=== PATIENT | female | born 1955 | race Caucasian/White ===

== ENCOUNTER 2016-12-06 17:41 | Inpatient (IN) | payer BC ==
--- NOTE | 2016-12-06 17:53 | ER Document Report ---
ED Medical Screen (RME) - General Stated Complaint: ABDOMINAL PAIN Mode of Arrival: Ambulatory Information source: Patient Notes: Patient complains of upper abdominal pain that wraps around entire upper abdomen for the past 5 days. No fever. No nausea or vomiting. Patient was sent from outpatient radiology office with concerns about likely cholecystitis. hx: Dyslipidemia, hypothyroid I have greeted and performed a rapid initial assessment of this patient. A comprehensive ED assessment and evaluation of the patient, analysis of test results and completion of the medical decision making process will be conducted by additional ED providers. TRAVEL OUTSIDE OF THE [place] IN LAST 30 DAYS: No - Related Data Allergies/Adverse Reactions: No Known Allergies Allergy (Unverified 08/13/16 02:31) Physical Exam - Vital signs Vitals: Temp Pulse Resp BP Pulse Ox 98.2 F 86 18 145/87 H 96 12/06/16 17:49 12/06/16 17:49 12/06/16 17:49 12/06/16 17:49 12/06/16 17:49 - Abdominal Tenderness: Tender - Upper abdomen tenderness Course - Vital Signs Vital signs: Temp Pulse Resp BP Pulse Ox 98.2 F 86 18 145/87 H 96 12/06/16 17:49 12/06/16 17:49 12/06/16 17:49 12/06/16 17:49 12/06/16 17:49
[2016-12-06 18:46] LABS: ABSOLUTE EOSINOPHILS # (AUTO) 0.1 10^3/uL (0.0-0.6); ABSOLUTE LYMPHOCYTES (AUTO) 1.2 10^3/uL (0.5-4.7); ABSOLUTE MONOCYTES (AUTO) 2.2 10^3/uL (0.1-1.4); ABSOLUTE NEUT (AUTO) 14.6 10^3/uL (1.7-8.2); BASOPHILS % (AUTO) 0.2 % (0-2); EOSINOPHILS % (AUTO) 0.5 % (0-6); HEMATOCRIT 39.8 % (36.0-47.0); HEMOGLOBIN 13.3 g/dL (12.0-15.5); HGB HCT DIFFERENCE 0.1; LYMPHOCYTES % (AUTO) 6.4 % (13-45); MEAN CORPUSCULAR HEMOGLOBIN 35.7 pg (27.0-33.4); MEAN CORPUSCULAR HGB CONC 33.4 g/dL (32.0-36.0); MEAN CORPUSCULAR VOLUME 107 fl (80-97); RED BLOOD COUNT 3.72 10^6/uL (3.72-5.28); RED CELL DISTRIBUTION WIDTH 17.3 % (11.5-14.0); SEGMENTED NEUTROPHILS % (AUTO) 80.9 % (42-78)
[2016-12-06 18:47] LABS: APPEARANCE,URINE CLEAR; BILIRUBIN,URINE NEGATIVE (NEGATIVE); GLUCOSE, URINE NEGATIVE (NEGATIVE); KETONES,URINE TRACE mg/dL (NEGATIVE); LEUKOCYTE ESTERASE,URINE TRACE (NEGATIVE); NITRITE,URINE NEGATIVE (NEGATIVE); PROTEIN,URINE NEGATIVE (NEGATIVE); URINE SPECIFIC GRAVITY 1.057
[2016-12-06 19:06] LABS: ALANINE AMINOTRANSFERASE 91 U/L (9-52); ALBUMIN 3.7 g/dL (3.5-5.0); ALKALINE PHOSPHATASE 360 U/L (38-126); ANION GAP 13 (5-19); ASPARTATE AMINO TRANSFERASE 53 U/L (14-36); BILIRUBIN,TOTAL 1.4 mg/dL (0.2-1.3); BLOOD UREA NITROGEN 10 mg/dL (7-20); CALCIUM 9.4 mg/dL (8.4-10.2); CARBON DIOXIDE 28 mmol/L (22-30); CHLORIDE 98 mmol/L (98-107); CREATININE RESULT 0.65 mg/dL (0.52-1.25); GLUCOSE 91 mg/dL (75-110); LIPASE 73.9 U/L (23-300); POTASSIUM 3.6 mmol/L (3.6-5.0); SODIUM 138.6 mmol/L (137-145); TOTAL PROTEIN 7.2 g/dL (6.3-8.2)
[2016-12-06] MEDS ORDERED: HYDROMORPHONE HCL INJ/PF 2 MG/ML AMPULE IV ONE (19:10)
[2016-12-06] MEDS ORDERED: NORMAL SALINE 1000 ML 1,000 ML IV ONE ×2 (19:10→21:24)
[2016-12-06] MEDS ORDERED: AMPICILLIN SOD/SULBACTAM 3 GM VIAL IV ONE (19:13)
--- NOTE | 2016-12-06 19:18 | ER Document Report ---
ED GI/ <ALEX NEGRETE - Last Filed: 12/07/16 01:45> - General Time seen by provider: 19:14 Mode of Arrival: Ambulatory Information source: Patient TRAVEL OUTSIDE OF THE [place] IN LAST 30 DAYS: No - HPI Patient complains to provider of: Abdominal pain, Vomiting - None today Onset: Other Timing/Duration: Persistent Quality of pain: Sharp Severity at maximum: Moderate Severity in ED: Moderate Location: LUQ, LLQ, RUQ, RLQ Vaginal bleeding (Compared to normal period): None Associated symptoms: Nausea. denies: Vomiting - Vomiting today as she has not eaten anything Exacerbated by: Movement, Walking Relieved by: Denies Similar symptoms previously: Yes Recently seen / treated by doctor: Yes <SHANELLE CAZARES - Last Filed: 12/07/16 06:34> - General Chief Complaint: Abdominal Pain Stated Complaint: ABDOMINAL PAIN Notes: 61-year-old female presents to ED for abdominal pain was to the right upper quadrant. She states she's had the abdominal pain for 5 days worse today. States she has had nausea and vomiting but none today as she is not eaten since yesterday. Multiple doctors today and was sent over here for a cholecystitis. States she went to a outpatient radiology first and they sent her over here. ( SHANELLE CAZARES) - Related Data Allergies/Adverse Reactions: No Known Allergies Allergy (Unverified 08/13/16 02:31) Past Medical History - General Information source: Patient - Social History Smoking Status: Former Smoker Cigarette use (# per day): No Chew tobacco use (# tins/day): No Smoking Education Provided: No Frequency of alcohol use: 1 glass of wine daily Drug Abuse: None Lives with: Family Family History: Arthritis, DM, Hypertension, Malignancy, Thyroid Disfunction Patient has suicidal ideation: No Patient has homicidal ideation: No - Past Medical History Cardiac Medical History: Reports: Hx Hypercholesterolemia Pulmonary Medical History: Reports: Hx Pneumonia, Hx Sleep Apnea EENT Medical History: Reports: None Neurological Medical History: Reports: None Endocrine Medical History: Reports: Hx Hypothyroidism Renal/ Medical History: Reports: None Malignancy Medical History: Reports: None GI Medical History: Reports: Hx Colonoscopy, Hx Endoscopy Musculoskeltal Medical History: Reports None Skin Medical History: Reports None Psychiatric Medical History: Reports: Hx Anxiety Traumatic Medical History: Reports: None Infectious Medical History: Reports: None Past Surgical History: Reports: Hx Appendectomy <DEBORASHANELLE - Last Filed: 12/07/16 06:34> Review of Systems - Review of Systems Constitutional: No symptoms reported EENT: No symptoms reported Cardiovascular: No symptoms reported Respiratory: No symptoms reported Gastrointestinal: Abdomen distended, Abdominal pain, Nausea, Vomiting Genitourinary: No symptoms reported Female Genitourinary: No symptoms reported Musculoskeletal: No symptoms reported Skin: No symptoms reported Hematologic/Lymphatic: No symptoms reported Neurological/Psychological: No symptoms reported -: Yes All other systems reviewed and negative <SHANELLE CAZARES - Last Filed: 12/07/16 06:34> Physical Exam - Vital signs Interpretation: Normal - General General appearance: Appears well, Alert - HEENT Head: Normocephalic, Atraumatic Eyes: Normal Pupils: PERRL - Respiratory Respiratory status: No respiratory distress Chest status: Nontender Breath sounds: Normal Chest palpation: Normal - Cardiovascular Rhythm: Regular Heart sounds: Normal auscultation Murmur: No - Abdominal Inspection: Normal Distension: Distended Bowel sounds: Normal Tenderness: Tender, Medina's sign Organomegaly: No organomegaly - Back Back: Normal, Nontender - Extremities General upper extremity: Normal inspection, Nontender, Normal color, Normal ROM , Normal temperature General lower extremity: Normal inspection, Nontender, Normal color, Normal ROM , Normal temperature, Normal weight bearing. No: Lizbeth's sign - Neurological Neuro grossly intact: Yes Cognition: Normal Orientation: AAOx4 [place] Coma Scale Eye Opening: Spontaneous [place] Coma Scale Verbal: Oriented [place] Coma Scale Motor: Obeys Commands [place] Coma Scale Total: 15 Speech: Normal Motor strength normal: LUE, RUE, LLE, RLE Sensory: Normal - Psychological Associated symptoms: Normal affect, Normal mood - Skin Skin Temperature: Warm Skin Moisture: Dry Skin Color: Normal <SHANELLE CAZARES Last Filed: 12/07/16 06:34> - Vital signs Vitals: Temp Pulse Resp BP Pulse Ox 98.2 F 86 18 145/87 H 96 12/06/16 17:49 12/06/16 17:49 12/06/16 17:49 12/06/16 17:49 12/06/16 17:49 (ALEX NEGRETE) (SHANELLE CAZARES) Course - Laboratory Result Diagrams: 12/06/16 18:20 12/06/16 18:20 <ALEX NEGRETE - Last Filed: 12/07/16 01:45> - Laboratory Result Diagrams: 12/06/16 18:20 12/06/16 18:20 <SHANELLE CAZARES - Last Filed: 12/07/16 06:34> - Re-evaluation Re-evalutation: 12/06/16 19:[address] Cortez due to CT was done outpatient and WBCs of 18. We'll start antibiotics IVs and pain medicine to a upper abdominal ultrasound. Consult to Dr. Dumont who states that he has had a patient in the right now that he will come to see the patient and Dr. Dumont is out of surgery after the ultrasound. ( SHANELLE CAZARES) - Vital Signs Vital signs: Temp Pulse Resp BP Pulse Ox 98 F 84 20 123/73 95 12/07/16 05:16 12/07/16 05:16 12/07/16 05:16 12/07/16 05:16 12/07/16 05:16 (ALEX NEGRETE) (SHANELLE CAZARES) - Laboratory Laboratory results interpreted by me: 12/06/16 12/06/16 12/06/16 18:20 18:20 18:20 WBC 18.0 H MCV 107 H MCH 35.7 H RDW 17.3 H Seg Neutrophils % 80.9 H Lymphocytes % 6.4 L Absolute Neutrophils 14.6 H Absolute Monocytes 2.2 H Total Bilirubin 1.4 H AST 53 H ALT 91 H Alkaline Phosphatase 360 H Urine Ketones TRACE H Urine Urobilinogen 4.0 H Ur Leukocyte Esterase TRACE H (ALEX NEGRETE) (SHANELLE CAZARES) Discharge - Discharge Admitting Provider: Surgicalist Unit Admitted: Surgical Floor <ALEX NEGRETE - Last Filed: 12/07/16 01:45> <SHANELLE CAZARES - Last Filed: 12/07/16 06:34> - Discharge Clinical Impression: Gallbladder anomaly Sleep apnea Qualifiers: Sleep apnea type: obstructive Qualified Code(s): G47.33 - Obstructive sleep apnea (adult) (pediatric) Condition: Fair Disposition: ADMITTED INPATIENT
[2016-12-07] MEDS ORDERED: ONDANSETRON HCL INJ/PF 4 MG/2 ML SDV IV PRN (02:08)
[2016-12-07] MEDS ORDERED: PIPERACILLIN SODIUM/TAZOBACTAM 3.375 GM in NORMAL SALINE 100 ML IV ONE (02:30)
[2016-12-07] MEDS ORDERED: PIPERACILLIN/TAZOBACTAM 3.375 GM VIAL IV ONE ×2 (02:30→05:27)
--- NOTE | 2016-12-07 02:40 | PDOC H&P ---
History of Present Illness Admission Date/PCP: 12/07/16 02:07 LEOPOLDO FREED NP History of Present Illness: DEVI RODRIGUEZ is a 61 year old white female with 6 days of severe constant abdominal pain. She actually began having intermittent bouts of abdominal pain at least one year ago. The pain occurred shortly after meals and would last up to 2 hours. The pain she also had nausea and vomiting. The pain was at times sharp at times more of a full aching feeling. The pain was in the epigastrium and right upper quadrant. She took her normal GERD medication but this did not help. The bouts occurred at least twice per week over the last year. Starting 6 days ago, she had severe right upper quadrant abdominal pain. Pain at times was 10/10, sharp. Accompanied by nausea and vomiting. Pain was constant. Patient was worked up by outside primary care provider with a CT scan which was concerning for acute cholecystitis. Patient was referred to the ED. ultrasound was done which showed acute cholecystitis with cholelithiasis. Surgery was consulted. Past medical history: LYUDMILA, TIA, COPD, emphysema, GERD, hyperlipidemia, hypothyroidism, depression, anxiety. Past surgical history: Appendectomy Medications: Unsure of the exact names, takes about 11 including a cholesterol medication, thyroid medication, omeprazole, Zoloft, aspirin 81 mg, a cholesterol pill. Surgeries: Appendectomy. Social history: Lifelong smoker, but recently quit. One glass of alcohol daily. No recreational drugs. , approximate 46 years. Family history arthritis, diabetes, hypertension, hypothyroidism, lung cancer, breast cancer, emphysema. ROS: Ankle swelling, minor back pain, sinuses and cold. All other systems are reviewed and are negative. Past Medical History Cardiac Medical History: Reports: Hyperlipidema Pulmonary Medical History: Reports: Pneumonia, Sleep Apnea EENT Medical History: Reports: None Neurological Medical History: Reports: None Endocrine Medical History: Reports: Hypothyroidism Renal/ Medical History: Reports: None Malignancy Medical History: Reports: None Musculoskeltal Medical History: Reports: None Skin Medical History: Reports: None Psychiatric Medical History: Reports: Depression, General Anxiety Disorder Traumatic Medical History: Reports: None Infectious Medical History: Reports: None Past Surgical History Past Surgical History: Reports: Appendectomy Social History Information Source: Patient Lives with: Spouse/Significant other Smoking Status: Former Smoker Frequency of Alcohol Use: Social Amount of Alcoholic Beverages Per Day: 1 Hx Recreational Drug Use: No Drugs: None Hx Prescription Drug Abuse: No Family History Family History: Arthritis, DM, Hypertension, Malignancy, Thyroid Disfunction Parental Family History Reviewed: Yes Children Family History Reviewed: Yes Sibling(s) Family History Reviewed.: Yes Medication/Allergy Allergies/Adverse Reactions: No Known Allergies Allergy (Unverified 08/13/16 02:31) Review of Systems All systems: reviewed and no additional remarkable complaints except as stated Physical Exam Vital Signs: Temp Pulse Resp BP Pulse Ox 98.4 F 87 18 138/89 H 94 12/06/16 23:53 12/06/16 23:53 12/07/16 01:53 12/07/16 01:53 12/07/16 01:53 General appearance: PRESENT: no acute distress Head exam: PRESENT: normocephalic Eye exam: PRESENT: EOMI, other - Glasses Mouth exam: PRESENT: tongue midline Teeth exam: PRESENT: edentulous, other - Upper and lower dentures Neck exam: ABSENT: JVD, lymphadenopathy, tenderness, thyromegaly Respiratory exam: PRESENT: clear to auscultation stacia Cardiovascular exam: PRESENT: RRR GI/Abdominal exam: PRESENT: distended, soft, tenderness - Moderate tenderness to palpation in the right upper quadrant and epigastrium.. ABSENT: guarding, rebound Extremities exam: PRESENT: pedal edema. ABSENT: tenderness Neurological exam: PRESENT: alert, oriented to person, oriented to place, oriented to time, oriented to situation Psychiatric exam: PRESENT: appropriate affect, normal mood Skin exam: ABSENT: jaundice, rash Results Laboratory Results: WBC 18. Total bilirubin 1.4. Impressions: Abdomen Ultrasound 12/06/16 19:10 IMPRESSION: Cholelithiasis. Gallbladder adenomyomatosis. Moderate hepatic steatosis. Limitation. Status: Image reviewed by me Assessment & Plan - Diagnosis (1) Cholecystitis, acute with cholelithiasis Is this a current diagnosis for this admission?: YesPlan: Acute cholecystitis with cholelithiasis. Multiple comorbidities. Consider medicine consult in the morning. Recheck labs in the morning. watch total bilirubin: If it increases, consult GI for possible ERCP. If it stays the same over decreases, recommend laparoscopic cholecystectomy with cholangiogram. We discussed laparoscopic cholecystectomy with cholangiogram in detail. Questions were answered. We discussed the risks, benefits and alternatives including , heart attack, stroke, blood clots in the legs, blood clots in lungs, pneumonia, bleeding, infection, hernia, bile leak, failure of symptoms to resolve, long-term diarrhea, damage to surrounding structures such as bladder, bowels, blood vessels or bile duct resulting in serious long-term health issues. We discussed the possibility of retained stone with need for further procedure such as ERCP. Understands and wishes to proceed. (2) Obstructive sleep apnea Is this a current diagnosis for this admission?: Yes (3) History of TIA (transient ischemic attack) Is this a current diagnosis for this admission?: Yes (4) GERD (gastroesophageal reflux disease) Is this a current diagnosis for this admission?: Yes (5) Hyperlipidemia Is this a current diagnosis for this admission?: Yes (6) Hypothyroidism Is this a current diagnosis for this admission?: Yes (7) Depression Is this a current diagnosis for this admission?: Yes (8) Anxiety Is this a current diagnosis for this admission?: Yes
[2016-12-07] MEDS: MORPHINE SULFATE 10 MG/ML INJ IV PRN ×3 (03:19→12:03)
[2016-12-07] MEDS: PIPERACILLIN SODIUM/TAZOBACTAM 3.375 GM in NORMAL SALINE 100 ML IV SCH ×3 (05:34→20:47)
[2016-12-07 07:40] LABS: HEMATOCRIT 35.1 % (36.0-47.0); HEMOGLOBIN 11.7 g/dL (12.0-15.5); MEAN CORPUSCULAR HEMOGLOBIN 35.9 pg (27.0-33.4); MEAN CORPUSCULAR HGB CONC 33.4 g/dL (32.0-36.0); MEAN CORPUSCULAR VOLUME 108 fl (80-97); RED BLOOD COUNT 3.26 10^6/uL (3.72-5.28); RED CELL DISTRIBUTION WIDTH 17.1 % (11.5-14.0); WHITE BLOOD COUNT 19.1 10^3/uL (4.0-10.5)
[2016-12-07 08:13] LABS: ALANINE AMINOTRANSFERASE 72 U/L (9-52); ALBUMIN 3.3 g/dL (3.5-5.0); ALKALINE PHOSPHATASE 335 U/L (38-126); ANION GAP 11 (5-19); ASPARTATE AMINO TRANSFERASE 46 U/L (14-36); BILIRUBIN,DIRECT 0.2 mg/dL (0.0-0.3); BILIRUBIN,TOTAL 1.7 mg/dL (0.2-1.3); BLOOD UREA NITROGEN 10 mg/dL (7-20); CALCIUM 8.2 mg/dL (8.4-10.2); CARBON DIOXIDE 24 mmol/L (22-30); CHLORIDE 104 mmol/L (98-107); CREATININE RESULT 0.54 mg/dL (0.52-1.25); GLUCOSE 74 mg/dL (75-110); POTASSIUM 3.3 mmol/L (3.6-5.0); TOTAL PROTEIN 6.1 g/dL (6.3-8.2)
[2016-12-07] MEDS: POTASSI CL 20 MEQ/D5-1/2NS 1L 1,000 ML IV PRN ×2 (09:13→21:20)
[2016-12-07] MEDS: POTASSI CL 20 MEQ/50 ML RIDER 20 MEQ/50 ML RTUPB IV SCH ×2 (09:17→12:20)
[2016-12-07] MEDS: PANTOPRAZOLE SODIUM 40 MG VIAL IV SCH (09:43)
--- NOTE | 2016-12-07 12:44 | PDOC PROGRESS REPORT ---
Subjective Subjective:: Still has abdominal pain. Denies fevers or chills. Denies vomiting, mild nausea. Physical Exam Vital Signs: Temp Pulse Resp BP Pulse Ox 98 F 84 20 123/73 95 12/07/16 05:16 12/07/16 05:16 12/07/16 05:16 12/07/16 05:16 12/07/16 05:16 Intake & Output 12/06/16 12/07/16 12/08/16 06:59 06:59 06:59 Weight 83 kg General appearance: PRESENT: no acute distress Head exam: PRESENT: normocephalic GI/Abdominal exam: PRESENT: distended - Distended versus baseline, Medina's sign , soft, tenderness - Tender in the right upper quadrant, epigastrium and midabdomen.. ABSENT: guarding, rebound Extremities exam: PRESENT: pedal edema - Mild edema and chronic venous stasis changes. Neurological exam: PRESENT: alert, oriented to situation Psychiatric exam: PRESENT: appropriate affect, normal mood Skin exam: ABSENT: jaundice Results Laboratory Results: 12/07/16 07:00 12/07/16 07:00 12/07/16 12/07/16 07:00 07:00 WBC 19.1 H RBC 3.26 L Hgb 11.7 L Hct 35.1 L MCV 108 H MCH 35.9 H MCHC 33.4 RDW 17.1 H Plt Count 243 Sodium 139.0 Potassium 3.3 L Chloride 104 Carbon Dioxide 24 Anion Gap 11 BUN 10 Creatinine 0.54 Est GFR ( Amer) > 60 Est GFR (Non-Af Amer) > 60 Glucose 74 L Calcium 8.2 L Total Bilirubin 1.7 H AST 46 H ALT 72 H Alkaline Phosphatase 335 H Total Protein 6.1 L Albumin 3.3 L Impressions: Abdomen Ultrasound 12/06/16 19:10 IMPRESSION: Cholelithiasis. Gallbladder adenomyomatosis. Moderate hepatic steatosis. Limitation. Assessment & Plan - Diagnosis (1) Cholecystitis, acute with cholelithiasis Is this a current diagnosis for this admission?: YesPlan: Initially the plan was to proceed to the operating room today for laparoscopic cholecystectomy with cholangiogram. However, her total bilirubin and direct bilirubin have gone up. I spoke with Dr. Davis and discussed the matter. He recommends ERCP prior to cholecystectomy. She will remain nothing by mouth and he will perform the cholecystectomy this evening. If her ERCP goes well and no further issues arise, we may be able to proceed with cholecystectomy tomorrow. She understands the plan and wishes to proceed. Continue IV fluids, IV antibiotics, ambulation, SCDs, incentive spirometry. (2) Obstructive sleep apnea Is this a current diagnosis for this admission?: Yes (3) History of TIA (transient ischemic attack) Is this a current diagnosis for this admission?: Yes (4) GERD (gastroesophageal reflux disease) Is this a current diagnosis for this admission?: Yes (5) Hyperlipidemia Is this a current diagnosis for this admission?: Yes (6) Hypothyroidism Is this a current diagnosis for this admission?: Yes (7) Depression Is this a current diagnosis for this admission?: Yes (8) Anxiety Is this a current diagnosis for this admission?: Yes
--- NOTE | 2016-12-07 13:47 | EKG REPORT ---
SEVERITY:- ABNORMAL ECG - SINUS RHYTHM RIGHT BUNDLE BRANCH BLOCK : Confirmed by: Al Walker MD 07-Dec-2016 13:45:51
[2016-12-07] MEDS ORDERED: NALOXONE HCL INJ/PF 0.4 MG/1 ML SDV ONE ×2 (16:48→16:51)
[2016-12-07] MEDS ORDERED: PROMETHAZINE HCL INJ 25 MG/1 ML VIAL ONE (16:49)
[2016-12-07] MEDS ORDERED: GLUCAGON,HUMAN RECOMB 1 MG INJ ONE (16:50)
[2016-12-07] MEDS ORDERED: FENTANYL CITRATE INJ/PF 100 MCG/2 ML AMPUL ONE (16:50)
[2016-12-07] MEDS ORDERED: EPINEPHRINE INJ 1 MG/10 ML DISP.SYRIN ONE (16:50)
[2016-12-07] MEDS ORDERED: FLUMAZENIL INJ 0.5 MG/5 ML VIAL IV ONE (16:50)
--- NOTE | 2016-12-07 16:54 | PDOC CONSULTATION ---
Consultation Consult Date: 12/07/16 Attending physician:: INNA STEVENSON Consult reason:: Hyperlipidemia, hypothyroidism, anxiety depression, obstructive sleep apnea history History of Present Illness Admission Date/PCP: 12/07/16 02:08 LEOPOLDO FREED NP Patient complains of: Abdominal pain History of Present Illness: DEVI RODRIGUEZ is a 61 year old white female with 6 days of severe constant abdominal pain. She actually began having intermittent bouts of abdominal pain at least one year ago. The pain occurred shortly after meals and would last up to 2 hours. The pain she also had nausea and vomiting. The pain was at times sharp at times more of a full aching feeling. The pain was in the epigastrium and right upper quadrant. She took her normal GERD medication but this did not help. The bouts occurred at least twice per week over the last year. Starting 6 days ago, she had severe right upper quadrant abdominal pain. Pain at times was 10/10, sharp. Accompanied by nausea and vomiting. Pain was constant. Patient was worked up by outside primary care provider with a CT scan which was concerning for acute cholecystitis. Patient was referred to the ED. ultrasound was done which showed acute cholecystitis with cholelithiasis. Surgery was consulted and eventually admitted the patient for possible cholecystectomy. Medical consultation was made due to history of obstructive sleep apnea, hypothyroidism, anxiety and depression. Past medical history: LYUDMILA, TIA, COPD, emphysema, GERD, hyperlipidemia, hypothyroidism, depression, anxiety. Past surgical history: Appendectomy Medications: Unsure of the exact names, takes about 11 including a cholesterol medication, thyroid medication, omeprazole, Zoloft, aspirin 81 mg, a cholesterol pill. Surgeries: Appendectomy. Social history: Lifelong smoker, but recently quit. One glass of alcohol daily. No recreational drugs. , approximate 46 years. Family history arthritis, diabetes, hypertension, hypothyroidism, lung cancer, breast cancer, emphysema. ROS: Ankle swelling, minor back pain, sinuses and cold. All other systems are reviewed and are negative. Past Medical History Cardiac Medical History: Reports: Hyperlipidema Pulmonary Medical History: Reports: Chronic Obstructive Pulmonary Disease (COPD) , Pneumonia, Sleep Apnea EENT Medical History: Reports: None Neurological Medical History: Reports: Other - Transient ischemic attack Endocrine Medical History: Reports: Hypothyroidism Renal/ Medical History: Reports: None Malignancy Medical History: Reports: None Musculoskeltal Medical History: Reports: None Skin Medical History: Reports: None Psychiatric Medical History: Reports: Depression, General Anxiety Disorder Traumatic Medical History: Reports: None Infectious Medical History: Reports: None Past Surgical History Past Surgical History: Reports: Appendectomy Social History Information Source: Patient Lives with: Family Smoking Status: Former Smoker Frequency of Alcohol Use: Social Hx Recreational Drug Use: No Drugs: None Hx Prescription Drug Abuse: No - Advance Directive Resuscitation Status: Full Code Family History Family History: Arthritis, DM, Hypertension, Malignancy - Lung cancer and breast cancer, Thyroid Disfunction Parental Family History Reviewed: Yes Children Family History Reviewed: Yes Sibling(s) Family History Reviewed.: Yes Medication/Allergy Home Medications: Alendronate Sodium [Fosamax 70 mg Tablet] 70 mg PO TU@1000 12/07/16 Atorvastatin Calcium [Lipitor 80 mg Tablet] 80 mg PO QHS 12/07/16 Budesonide/Formoterol Fumarate [Symbicort HFA 160-4.5 mcg Inhaler 6 gm] 2 puff IH BID 12/07/16 Bupropion HCl [Bupropion Xl] 300 mg PO DAILY 12/07/16 Levothyroxine Sodium [Synthroid 0.088 mg Tablet] 0.088 mg PO QAM 12/07/16 Nicotine [Nicoderm 21 mg/24 Hr Transderm Patch] 1 each TOP DAILY 12/07/16 Omeprazole 20 mg PO DAILY 12/07/16 Sertraline HCl [Zoloft 50 mg Tablet] 100 mg PO QPM 12/07/16 Allergies/Adverse Reactions: No Known Allergies Allergy (Unverified 08/13/16 02:31) Review of Systems Constitutional: PRESENT: anorexia - For the past several days. ABSENT: chills, fever(s), headache(s), night sweats, weight gain, weight loss Eyes: ABSENT: visual disturbances Ears: ABSENT: hearing changes Nose, Mouth, and Throat: ABSENT: mouth pain, sore throat Cardiovascular: ABSENT: chest pain, dyspnea on exertion, edema, orthropnea, palpitations Respiratory: ABSENT: cough, dyspnea, hemoptysis Gastrointestinal: PRESENT: abdominal pain, diarrhea, nausea, vomiting. ABSENT: constipation, hematemesis, hematochezia, melena Genitourinary: ABSENT: difficulty urinating, dysuria, hematuria Musculoskeletal: ABSENT: joint swelling Integumentary: ABSENT: pruritus, rash, wounds Neurological: ABSENT: abnormal gait, abnormal speech, confusion, dizziness, focal weakness, syncope Psychiatric: ABSENT: homidical ideation, suicidal ideation Endocrine: ABSENT: cold intolerance, heat intolerance, polydipsia, polyuria Hematologic/Lymphatic: ABSENT: easy bleeding, easy bruising Physical Exam Vital Signs: Temp Pulse Resp BP Pulse Ox 98.4 F 83 16 118/74 90 L 12/07/16 11:18 12/07/16 11:18 12/07/16 11:18 12/07/16 11:18 12/07/16 11:18 Intake & Output 12/06/16 12/07/16 12/08/16 06:59 06:59 06:59 Intake Total 258 Balance 258 Weight 83 kg General appearance: PRESENT: no acute distress, cooperative, obese Head exam: PRESENT: atraumatic, normocephalic Eye exam: PRESENT: conjunctiva pink, EOMI, PERRLA. ABSENT: scleral icterus Ear exam: PRESENT: normal external ear exam Mouth exam: PRESENT: moist, neck supple, tongue midline Neck exam: ABSENT: carotid bruit, JVD, lymphadenopathy, thyromegaly Respiratory exam: PRESENT: clear to auscultation stacia. ABSENT: rales, rhonchi, wheezes Cardiovascular exam: PRESENT: RRR. ABSENT: diastolic murmur, rubs, systolic murmur Pulses: PRESENT: normal dorsalis pedis pul Vascular exam: PRESENT: normal capillary refill GI/Abdominal exam: PRESENT: guarding - voluntary, hypoactive bowel sounds, rebound, soft, tenderness. ABSENT: distended, mass, organolmegaly - Limited due to discomfort Rectal exam: PRESENT: deferred Extremities exam: PRESENT: full ROM. ABSENT: calf tenderness, clubbing, pedal edema Neurological exam: PRESENT: alert, awake, oriented to person, oriented to place , oriented to time, oriented to situation Psychiatric exam: PRESENT: appropriate affect, normal mood. ABSENT: homicidal ideation, suicidal ideation Skin exam: PRESENT: dry, intact, warm. ABSENT: cyanosis, jaundice, rash Results Laboratory Results: 12/07/16 07:00 12/07/16 07:00 12/07/16 12/07/16 07:00 07:00 WBC 19.1 H RBC 3.26 L Hgb 11.7 L Hct 35.1 L MCV 108 H MCH 35.9 H MCHC 33.4 RDW 17.1 H Plt Count 243 Sodium 139.0 Potassium 3.3 L Chloride 104 Carbon Dioxide 24 Anion Gap 11 BUN 10 Creatinine 0.54 Est GFR ( Amer) > 60 Est GFR (Non-Af Amer) > 60 Glucose 74 L Calcium 8.2 L Total Bilirubin 1.7 H AST 46 H ALT 72 H Alkaline Phosphatase 335 H Total Protein 6.1 L Albumin 3.3 L Impressions: Abdomen Ultrasound 12/06/16 19:10 IMPRESSION: Cholelithiasis. Gallbladder adenomyomatosis. Moderate hepatic steatosis. Limitation. Assessment & Plan - Diagnosis (1) Cholecystitis, acute with cholelithiasis Is this a current diagnosis for this admission?: Yes (2) Anxiety Is this a current diagnosis for this admission?: Yes (3) Depression Qualifiers: Depression Type: unspecified Qualified Code(s): F32.9 - Major depressive disorder, single episode, unspecified Is this a current diagnosis for this admission?: Yes (4) GERD (gastroesophageal reflux disease) Qualifiers: Esophagitis presence: without esophagitis Qualified Code(s): K21.9 - Gastro-esophageal reflux disease without esophagitis Is this a current diagnosis for this admission?: Yes (5) History of TIA (transient ischemic attack) Is this a current diagnosis for this admission?: Yes (6) Hyperlipidemia Qualifiers: Hyperlipidemia type: unspecified Qualified Code(s): E78.5 - Hyperlipidemia, unspecified Is this a current diagnosis for this admission?: Yes (7) Hypothyroidism Qualifiers: Hypothyroidism type: unspecified Qualified Code(s): E03.9 - Hypothyroidism, unspecified Is this a current diagnosis for this admission?: Yes (8) Obstructive sleep apnea Is this a current diagnosis for this admission?: Yes - Time Time Spent: 30 to 50 Minutes - Plan Summary Plan Summary: Continue Symbicort, bupropion, Zoloft and Synthroid. We will check a TSH and a free T4. Hold alendronate and cholesterol medication for now. Thank you so much for letting us participate in in her care. We will follow the patient with you.
[2016-12-07] MEDS: BUDESONIDE/FORMOTEROL 160-4.5 MCG 60 PUFF/6 GM MDI IH SCH (17:57)
[2016-12-07] MEDS: DOCUSATE SODIUM 100 MG CAPSULE PO SCH (17:57)
[2016-12-07] MEDS: SERTRALINE HCL 50 MG TABLET PO SCH (17:57)
--- NOTE | 2016-12-07 18:29 | PDOC CONSULTATION ---
Consultation Consult Date: 12/07/16 History of Present Illness Admission Date/PCP: 12/07/16 02:08 LEOPOLDO FREED NP History of Present Illness: This is a 61-year-old patient admitted with abdominal pain, abnormal LFTs and gallstones. Patient has been having recurrent epigastric and right upper quadrant pain off and on for months but this became more constant in the last five days. The pain increases with food and it is associated with vomiting. She has no history of liver disease. Her bilirubin was 1.4 on admission with elevated transaminases and alkaline phosphatase. Her ultrasound showed gallstones but no dilated ducts. Lipase was normal. Her LFTs actually got worse soon after admission Past Medical History Cardiac Medical History: Reports: Hyperlipidema Pulmonary Medical History: Reports: Chronic Obstructive Pulmonary Disease (COPD) , Pneumonia, Sleep Apnea EENT Medical History: Reports: None Neurological Medical History: Reports: None, Other - Transient ischemic attack Denies: Seizures Endocrine Medical History: Reports: Hypothyroidism Renal/ Medical History: Reports: None Malignancy Medical History: Reports: None Musculoskeltal Medical History: Reports: None Skin Medical History: Reports: None Psychiatric Medical History: Reports: Depression, General Anxiety Disorder Traumatic Medical History: Reports: None Infectious Medical History: Reports: None Past Surgical History Past Surgical History: Reports: Appendectomy, Hysterectomy Social History Lives with: Family Smoking Status: Former Smoker Frequency of Alcohol Use: Social Hx Recreational Drug Use: No Drugs: None Hx Prescription Drug Abuse: No - Advance Directive Resuscitation Status: Full Code Family History Family History: Arthritis, DM, Hypertension, Malignancy - Lung cancer and breast cancer, Thyroid Disfunction Parental Family History Reviewed: No Children Family History Reviewed: NA Sibling(s) Family History Reviewed.: NA Medication/Allergy Home Medications: Alendronate Sodium [Fosamax 70 mg Tablet] 70 mg PO TU@1000 12/07/16 Atorvastatin Calcium [Lipitor 80 mg Tablet] 80 mg PO QHS 12/07/16 Budesonide/Formoterol Fumarate [Symbicort HFA 160-4.5 mcg Inhaler 6 gm] 2 puff IH BID 12/07/16 Bupropion HCl [Bupropion Xl] 300 mg PO DAILY 12/07/16 Levothyroxine Sodium [Synthroid 0.088 mg Tablet] 0.088 mg PO QAM 12/07/16 Nicotine [Nicoderm 21 mg/24 Hr Transderm Patch] 1 each TOP DAILY 12/07/16 Omeprazole 20 mg PO DAILY 12/07/16 Sertraline HCl [Zoloft 50 mg Tablet] 100 mg PO QPM 12/07/16 Allergies/Adverse Reactions: No Known Allergies Allergy (Unverified 08/13/16 02:31) Review of Systems All systems: reviewed and no additional remarkable complaints except as stated Physical Exam Vital Signs: Temp Pulse Resp BP Pulse Ox 97.8 F 80 20 137/80 H 92 12/07/16 16:41 12/07/16 18:15 12/07/16 18:15 12/07/16 18:15 12/07/16 18:15 Intake & Output 12/06/16 12/07/16 12/08/16 06:59 06:59 06:59 Intake Total 258 Balance 258 Weight 83 kg Exam: General: Patient is alert and looks well. HEENT: There is no pallor or jaundice. PERRLA. Oropharynx normal Respiratory: No chest deformity. There is reduced breath sounds bilaterally from her COPD Cardiovascular: Heart sounds 1 and 2 normal with no murmurs. Abdominal: Not distended. Soft and nontender. Liver and spleen not palpable. No ascites demonstrated. Bowel sounds active. Rectal examination was deferred. Extremities: No edema Neurological: Alert and oriented x4. Grossly nonfocal. Normal speech Skin: No significant rash Psychological: Normal affect Results Laboratory Results: 12/07/16 07:00 12/07/16 07:00 12/07/16 12/07/16 07:00 07:00 WBC 19.1 H RBC 3.26 L Hgb 11.7 L Hct 35.1 L MCV 108 H MCH 35.9 H MCHC 33.4 RDW 17.1 H Plt Count 243 Sodium 139.0 Potassium 3.3 L Chloride 104 Carbon Dioxide 24 Anion Gap 11 BUN 10 Creatinine 0.54 Est GFR ( Amer) > 60 Est GFR (Non-Af Amer) > 60 Glucose 74 L Calcium 8.2 L Total Bilirubin 1.7 H AST 46 H ALT 72 H Alkaline Phosphatase 335 H Total Protein 6.1 L Albumin 3.3 L Impressions: Abdomen Ultrasound 12/06/16 19:10 IMPRESSION: Cholelithiasis. Gallbladder adenomyomatosis. Moderate hepatic steatosis. Limitation. Assessment & Plan - Diagnosis (1) Abnormal liver enzymes Is this a current diagnosis for this admission?: YesPlan: Her elevated liver function tests may be from choledocholithiasis. The need for an ERCP was explained to the patient and she is in agreement. (2) Gallstones Is this a current diagnosis for this admission?: YesPlan: She is scheduled for cholecystectomy tomorrow (3) Gallstones with biliary obstruction Is this a current diagnosis for this admission?: Yes (4) COPD (chronic obstructive pulmonary disease) Qualifiers: COPD type: emphysema Is this a current diagnosis for this admission?: Yes
[2016-12-07] MEDS: MIDAZOLAM 2 MG/2 ML INJ ONE ×2 (18:30→18:43)
--- NOTE | 2016-12-07 19:01 | Operative Report ---
Operative Report DATE OF SURGERY: 12/07/16 Operative Report: Pre-op diagnosis: Jaundice and gallstones Post-op diagnosis: Common bile duct sludge Surgery: ERCP with sphincterotomy Medications: Versed 3mg Fentanyl 50mcg IV push Tissue removed: None Procedure: After informed consent obtained from patient, the throat was sprayed with Hurricane and conscious sedation was achieved. The ERCP endoscope was then inserted into the esophagus blindly and advanced into the stomach. The duodenum was entered and the ampulla was identified. Using the triple-lumen sphincterotomy catheter the common bile duct was freely cannulated. A cholangiogram was obtained which showed possible filling defect in the distal common bile duct. The common bile duct and intrahepatic ducts did not appear dilated. A good sized sphincterotomy was then performed using the endocut mode. Patient became more agitated after the sphincterotomy and was trying to get off the table. I did not feel it was safe to continue the procedure. A good sized sphincterotomy will allow any stones to pass. There was a small amount of sludge that came out after sphincterotomy. Patient tolerated procedure well. Findings Common bile duct: Normal sized with small amount of sludge Intrahepatic ducts: Normal Pancreatic duct: Normal Plan: Proceed with cholecystectomy. Indomethacin suppository was given postoperatively OPERATION: .
[2016-12-07] MEDS: INDOMETHACIN 50 MG SUPP.RECT PR ONE ×2 (19:37→20:29)
[2016-12-07] MEDS: BUPROPION HCL 100 MG TABLET PO SCH (21:20)
[2016-12-08] MEDS: PIPERACILLIN SODIUM/TAZOBACTAM 3.375 GM in NORMAL SALINE 100 ML IV SCH ×5 (00:18→23:06)
[2016-12-08] MEDS: BUPROPION HCL 100 MG TABLET PO SCH ×3 (05:29→22:37)
[2016-12-08 06:37] LABS: HEMATOCRIT 32.7 % (36.0-47.0); HGB HCT DIFFERENCE 0.3; MEAN CORPUSCULAR HEMOGLOBIN 36.1 pg (27.0-33.4); MEAN CORPUSCULAR HGB CONC 33.6 g/dL (32.0-36.0); MEAN CORPUSCULAR VOLUME 108 fl (80-97); RED BLOOD COUNT 3.04 10^6/uL (3.72-5.28); RED CELL DISTRIBUTION WIDTH 17.4 % (11.5-14.0)
[2016-12-08 06:48] LABS: ALANINE AMINOTRANSFERASE 61 U/L (9-52); ALKALINE PHOSPHATASE 307 U/L (38-126); ANION GAP 8 (5-19); ASPARTATE AMINO TRANSFERASE 40 U/L (14-36); BILIRUBIN,TOTAL 0.9 mg/dL (0.2-1.3); BLOOD UREA NITROGEN 10 mg/dL (7-20); CALCIUM 8.2 mg/dL (8.4-10.2); CARBON DIOXIDE 25 mmol/L (22-30); CHLORIDE 106 mmol/L (98-107); CREATININE RESULT 0.55 mg/dL (0.52-1.25); GLUCOSE 118 mg/dL (75-110); POTASSIUM 3.8 mmol/L (3.6-5.0); SODIUM 139.1 mmol/L (137-145); TOTAL PROTEIN 5.7 g/dL (6.3-8.2)
[2016-12-08 07:18] LABS: THYROID STIMULATING HORMONE 5.08 uIU/mL (0.47-4.68)
[2016-12-08] MEDS: LEVOTHYROXINE SODIUM 0.088 MG TABLET PO SCH (07:52)
[2016-12-08] MEDS: POTASSI CL 20 MEQ/D5-1/2NS 1L 1,000 ML IV PRN ×2 (08:08→18:16)
[2016-12-08] MEDS ORDERED: METOCLOPRAMIDE HCL INJ/PF 10 MG/2 ML SDV ONE (08:32)
[2016-12-08] MEDS ORDERED: DEXAMETHASONE SOD PHOSPHATE INJ 4 MG/1 ML VIAL ONE (08:32)
[2016-12-08] MEDS ORDERED: LIDOCAINE 2% INJ-PF (20 MG/ML) 10 ML AMPUL ONE (08:32)
[2016-12-08] MEDS ORDERED: GLYCOPYRROLATE INJ 0.4 MG/2 ML VIAL ONE (08:32)
[2016-12-08] MEDS ORDERED: NEOSTIGMINE METHYLSULFATE 10 MG/10 ML VIAL ONE (08:32)
[2016-12-08] MEDS ORDERED: ONDANSETRON HCL INJ/PF 4 MG/2 ML SDV ONE (08:32)
[2016-12-08] MEDS ORDERED: ROCURONIUM BROMIDE INJ 50 MG/5 ML VIAL IV ONE (08:34)
[2016-12-08] MEDS ORDERED: SUCCINYLCHOLINE CHLORIDE INJ 200 MG/10 ML VIAL ONE (08:34)
--- NOTE | 2016-12-08 09:05 | PDOC PROGRESS REPORT ---
Subjective Progress Note for:: 12/08/16 Subjective:: Feels much better. Minimal abdominal pain. Physical Exam Vital Signs: Temp Pulse Resp BP Pulse Ox 98.3 F 70 16 113/71 91 L 12/08/16 07:13 12/08/16 07:13 12/08/16 07:13 12/08/16 07:13 12/08/16 07:13 Intake & Output 12/07/16 12/08/16 12/09/16 06:59 06:59 06:59 Intake Total 2058 Output Total 750 Balance 1308 Weight 83 kg 85.2 kg General appearance: PRESENT: no acute distress Respiratory exam: PRESENT: clear to auscultation stacia Cardiovascular exam: PRESENT: RRR GI/Abdominal exam: PRESENT: other - Soft, nondistended, mild right upper quadrant abdominal tenderness with no peritoneal signs. 1.5 cm umbilical hernia with no evidence of incarceration. Extremities exam: PRESENT: other - No swelling and no tenderness. Results Laboratory Results: 12/08/16 05:59 12/08/16 05:59 12/08/16 12/08/16 12/08/16 05:59 05:59 05:59 WBC 14.0 H RBC 3.04 L Hgb 11.0 L Hct 32.7 L MCV 108 H MCH 36.1 H MCHC 33.6 RDW 17.4 H Plt Count 248 Sodium 139.1 Potassium 3.8 Chloride 106 Carbon Dioxide 25 Anion Gap 8 BUN 10 Creatinine 0.55 Est GFR ( Amer) > 60 Est GFR (Non-Af Amer) > 60 Glucose 118 H Calcium 8.2 L Total Bilirubin 0.9 AST 40 H ALT 61 H Alkaline Phosphatase 307 H Total Protein 5.7 L Albumin 3.0 L TSH 5.08 H Free T4 0.96 Impressions: Abdomen Ultrasound 12/06/16 19:10 IMPRESSION: Cholelithiasis. Gallbladder adenomyomatosis. Moderate hepatic steatosis. Limitation. Catheter Placement 12/07/16 00:00 IMPRESSION: IMAGE(S) OBTAINED DURING PROCEDURE. Assessment & Plan - Diagnosis (1) Gallstones Is this a current diagnosis for this admission?: YesPlan: Status post ERCP for possible common bile duct stones at least sludge. Patient with likely cholecystitis as well. Will plan laparoscopic cholecystectomy today. I have discussed with the patient the risk and benefits of the procedure including risk of conversion to an open procedure, risk of bleeding, infection, bile duct and intestinal injury, postcholecystectomy diarrhea, cardiopulmonary complications. Patient understands and agrees to proceed. Patient also has an umbilical hernia that I will plan to repair at the same time. I have discussed with the patient the risk of recurrence.
[2016-12-08] MEDS: PANTOPRAZOLE SODIUM 40 MG VIAL IV SCH (09:16)
[2016-12-08] MEDS: BUDESONIDE/FORMOTEROL 160-4.5 MCG 60 PUFF/6 GM MDI IH SCH ×2 (09:16→18:21)
[2016-12-08] MEDS: DOCUSATE SODIUM 100 MG CAPSULE PO SCH ×2 (09:52→18:19)
[2016-12-08] MEDS ORDERED: (PENDING PHARMACY ID) (Bupropion Hcl [Bupropion Xl] 300 MG) PO SCH (10:00)
--- NOTE | 2016-12-08 11:14 | PDOC PROGRESS REPORT ---
Subjective Progress Note for:: 12/08/16 Subjective:: Patient feels better this morning in terms of discomfort on the abdomen but it is still present. No nausea or vomiting however. Denies any chills or fever. No chest pain or shortness of breath. Had ERCP and sphincterotomy yesterday. Physical Exam Vital Signs: Temp Pulse Resp BP Pulse Ox 98.3 F 70 16 113/71 91 L 12/08/16 07:13 12/08/16 07:13 12/08/16 07:13 12/08/16 07:13 12/08/16 07:13 Intake & Output 12/07/16 12/08/16 12/09/16 06:59 06:59 06:59 Intake Total 2058 Output Total 750 Balance 1308 Weight 83 kg 85.2 kg General appearance: PRESENT: no acute distress, cooperative, obese Head exam: PRESENT: normocephalic Eye exam: PRESENT: EOMI Mouth exam: PRESENT: moist, neck supple Neck exam: ABSENT: full ROM Respiratory exam: PRESENT: clear to auscultation stacia Cardiovascular exam: PRESENT: RRR GI/Abdominal exam: PRESENT: normal bowel sounds, soft Extremities exam: ABSENT: pedal edema Neurological exam: PRESENT: alert, awake, oriented to situation Skin exam: PRESENT: dry, warm. ABSENT: cyanosis Results Laboratory Results: 12/08/16 05:59 12/08/16 05:59 12/08/16 12/08/16 12/08/16 05:59 05:59 05:59 WBC 14.0 H RBC 3.04 L Hgb 11.0 L Hct 32.7 L MCV 108 H MCH 36.1 H MCHC 33.6 RDW 17.4 H Plt Count 248 Sodium 139.1 Potassium 3.8 Chloride 106 Carbon Dioxide 25 Anion Gap 8 BUN 10 Creatinine 0.55 Est GFR ( Amer) > 60 Est GFR (Non-Af Amer) > 60 Glucose 118 H Calcium 8.2 L Total Bilirubin 0.9 AST 40 H ALT 61 H Alkaline Phosphatase 307 H Total Protein 5.7 L Albumin 3.0 L TSH 5.08 H Free T4 0.96 Impressions: Abdomen Ultrasound 12/06/16 19:10 IMPRESSION: Cholelithiasis. Gallbladder adenomyomatosis. Moderate hepatic steatosis. Limitation. Catheter Placement 12/07/16 00:00 IMPRESSION: IMAGE(S) OBTAINED DURING PROCEDURE. Assessment & Plan - Diagnosis (1) Cholecystitis, acute with cholelithiasis Is this a current diagnosis for this admission?: Yes (2) Anxiety Is this a current diagnosis for this admission?: Yes (3) Depression Qualifiers: Depression Type: unspecified Qualified Code(s): F32.9 - Major depressive disorder, single episode, unspecified Is this a current diagnosis for this admission?: Yes (4) GERD (gastroesophageal reflux disease) Qualifiers: Esophagitis presence: without esophagitis Qualified Code(s): K21.9 - Gastro-esophageal reflux disease without esophagitis Is this a current diagnosis for this admission?: Yes (5) History of TIA (transient ischemic attack) Is this a current diagnosis for this admission?: Yes (6) Hyperlipidemia Qualifiers: Hyperlipidemia type: unspecified Qualified Code(s): E78.5 - Hyperlipidemia, unspecified Is this a current diagnosis for this admission?: Yes (7) Hypothyroidism Qualifiers: Hypothyroidism type: unspecified Qualified Code(s): E03.9 - Hypothyroidism, unspecified Is this a current diagnosis for this admission?: Yes (8) Obstructive sleep apnea Is this a current diagnosis for this admission?: Yes - Time Time Spent with patient: Less than 15 minutes - Plan Summary Plan Summary: Continue current medications at this time. Patient reportedly will go for cholecystectomy today. Once able to take oral intake fully, then we can resume all her home medications. Continue supportive care.
[2016-12-08] MEDS ORDERED: BUPIVACAINE HCL 0.25 % INJ/PF (2.5 MG/1 ML) 30 ML VIAL ONE (12:47)
[2016-12-08] MEDS ORDERED: MIDAZOLAM 2 MG/2 ML INJ ONE (12:56)
[2016-12-08] MEDS ORDERED: FENTANYL CITRATE INJ/PF 100 MCG/2 ML AMPUL ONE ×2 (12:56)
[2016-12-08] MEDS ORDERED: HYDROMORPHONE HCL INJ/PF 2 MG/ML AMPULE ONE (12:56)
[2016-12-08] MEDS ORDERED: PROPOFOL INJ 200 MG/20 ML VIAL IV ONE (12:57)
[2016-12-08] MEDS ORDERED: EPHEDRINE SULFATE INJ 50 MG/1 ML AMPULE ONE (14:40)
[2016-12-08] MEDS ORDERED: ONDANSETRON HCL INJ/PF 4 MG/2 ML SDV IV PRN ×2 (15:14→16:33)
[2016-12-08] MEDS ORDERED: MORPHINE SULFATE 10 MG/ML INJ IV PRN (15:14)
[2016-12-08] MEDS ORDERED: DIPHENHYDRAMINE HCL 50 MG/ML VIAL IV PRN (15:14)
[2016-12-08] MEDS ORDERED: FENTANYL CITRATE INJ/PF 100 MCG/2 ML AMPUL IV PRN ×3 (15:14)
[2016-12-08] MEDS ORDERED: OXYCODONE-ACETAMINOPHEN 5-325 MG TABLET PO PRN ×2 (15:14)
[2016-12-08] MEDS ORDERED: PROMETHAZINE HCL INJ 25 MG/1 ML VIAL IV PRN ×2 (15:14)
[2016-12-08] MEDS ORDERED: ALBUTEROL SULFATE 0.083% NEB 2.5 MG/3 ML AMPUL NEB ONE (16:15)
--- NOTE | 2016-12-08 16:33 | Operative Report ---
Operative Report DATE OF SURGERY: 12/07/16 PREOPERATIVE DIAGNOSIS: Cholecystitis, cholelithiasis. Umbilical hernia POSTOPERATIVE DIAGNOSIS: Cholelithiasis, acute cholecystitis. Umbilical hernia OPERATION: Attempted laparoscopic cholecystectomy, conversion to open cholecystectomy. Umbilical hernia repair. SURGEON: CARLOS WALTON ANESTHESIA: GA TISSUE REMOVED OR ALTERED: Gallbladder COMPLICATIONS: None ESTIMATED BLOOD LOSS: 300 mL INTRAOPERATIVE FINDINGS: Markedly distended thick-walled gallbladder with turbid fluid within the gallbladder lumen with no visible plane between the gallbladder and the rosalinda hepatis PROCEDURE: Informed consent was obtained. Patient was brought to the operating room placed on the operating room table in the supine position. After satisfactory induction of general anesthesia, patient's abdomen was prepped and draped in usual sterile fashion. A semicircular infraumbilical incision was made dissection was carried down the bellybutton was dissected away from the underlying hernia. The hernia sac was incised entering the peritoneal cavity. The umbilical hernia fascial defect measured about a centimeter and a half in size. Stay sutures were placed and Hart trocar was inserted through the hernia defect and pneumoperitoneum produced with good patient toleration. 5 mm trocar was placed in the subxiphoid location entering the peritoneal cavity to the right-hand side of the fossa ligament. 25 mm trochars were placed in the right subcostal location. Omentum was plastered to the underlying gallbladder the omentum was gently teased off of the gallbladder revealing a markedly distended thick-walled inflamed gallbladder. The gallbladder was decompressed with a decompression needle aspirating very cloudy nonbilious fluid. The gallbladder was grasped and retracted the anteriorly it could not be retracted over the dome of the liver due to its anatomy. Despite multiple technical measures I could did not expose the the lower third of the gallbladder. With the inability to obtain exposure due to the surrounding tissue inflammatory changes, the procedure was converted to an open procedure. A right subcostal incision was made dissection was carried down and the peritoneal cavity was entered without difficulty. All trochars were removed. Bookwalter retractor was used during the case. There was no visible plane between the rosalinda hepatis and the distal aspect of the gallbladder. All of this area was completely encased in inflammation. With no palpable plane either. The gallbladder was sharply dissected off of the liver dissection was carried down distally I stopped the dissection before I reached the region of the rosalinda hepatis. Rather then risk common bile duct injury, I amputated the gallbladder leaving approximately the distal 10% of the gallbladder in place. Bleeding points at the gallbladder wall was controlled with electrocautery. The gallbladder had multiple stones. Stones were all attempted to be retrieved. The mucosa of the gallbladder remnant was cauterized. The wall of the gallbladder was too thick and too inflamed to allow any meaningful suture closure of this distal remnant. After the gallbladder had been removed close inspection revealed that indeed the the distal portion of the gallbladder was completely fused to the rosalinda hepatis with no discernible plane. The operative field was irrigated and irrigant aspirated out. Hemostasis appeared excellent. 2 Anand-Bermeo drains were placed around the distal gallbladder remnant. These drains were brought out through the subxiphoid and the right upper lateral 5 mm trocar sites. Sponge needle and strength counts were all correct. The right subcostal fascial incisions were closed with the 2 layered the running PDS suture closure. Skin was closed with eladio. The umbilical hernia was repaired using interrupted Ethibond sutures. The bellybutton was tacked to the underlying fascia using an interrupted Vicryl suture. Skin was closed with eladio. Marcaine was injected at the incision sites. Patient tolerated the procedure well with no apparent complications and was taken to the recovery area in stable condition.
[2016-12-08] MEDS ORDERED: KETOROLAC TROMETHAMINE INJ/PF 30 MG/1 ML SDV ONE (16:34)
[2016-12-08] MEDS ORDERED: ACETAMINOPHEN 100 ML IV ONE (16:34)
[2016-12-08] MEDS: FENTANYL CITRATE INJ/PF 100 MCG/2 ML AMPUL ONE ×2 (16:50→16:55)
[2016-12-08] MEDS: MORPHINE SULFATE 10 MG/ML INJ IV PRN (18:19)
[2016-12-08] MEDS: SERTRALINE HCL 50 MG TABLET PO SCH (18:34)
[2016-12-09] MEDS: BUPROPION HCL 100 MG TABLET PO SCH ×3 (05:16→21:10)
[2016-12-09] MEDS: PIPERACILLIN SODIUM/TAZOBACTAM 3.375 GM in NORMAL SALINE 100 ML IV SCH ×2 (05:36→12:21)
[2016-12-09] MEDS: POTASSI CL 20 MEQ/D5-1/2NS 1L 1,000 ML IV PRN (05:36)
[2016-12-09] MEDS: MORPHINE SULFATE 10 MG/ML INJ IV PRN ×2 (08:03→12:02)
[2016-12-09] MEDS: LEVOTHYROXINE SODIUM 0.088 MG TABLET PO SCH (08:26)
--- NOTE | 2016-12-09 09:22 | PDOC PROGRESS REPORT ---
Subjective Progress Note for:: 12/09/16 Subjective:: Patient status post cholecystectomy. Now on regular diet. Abdominal discomfort improved. No nausea or vomiting. Denies chest pain or shortness of breath. No PND or orthopnea. Physical Exam Vital Signs: Temp Pulse Resp BP Pulse Ox 98.5 F 74 18 115/71 96 12/09/16 07:48 12/09/16 07:48 12/09/16 07:48 12/09/16 07:48 12/09/16 07:48 Intake & Output 12/08/16 12/09/16 12/10/16 06:59 06:59 06:59 Intake Total 2058 8499 Output Total 750 2152 Balance 1308 6347 Weight 85.2 kg 90 kg General appearance: PRESENT: no acute distress, cooperative, obese Head exam: PRESENT: normocephalic Eye exam: PRESENT: EOMI Mouth exam: PRESENT: moist, neck supple Neck exam: ABSENT: JVD Respiratory exam: PRESENT: clear to auscultation stacia. ABSENT: crackles, wheezes Cardiovascular exam: PRESENT: RRR. ABSENT: gallop GI/Abdominal exam: PRESENT: soft. ABSENT: distended Extremities exam: ABSENT: pedal edema Neurological exam: PRESENT: alert, awake, oriented to person, oriented to place , oriented to time, oriented to situation Skin exam: PRESENT: dry, warm. ABSENT: cyanosis Results Laboratory Results: 12/08/16 05:59 12/08/16 05:59 Impressions: Abdomen Ultrasound 12/06/16 19:10 IMPRESSION: Cholelithiasis. Gallbladder adenomyomatosis. Moderate hepatic steatosis. Limitation. Catheter Placement 12/07/16 00:00 IMPRESSION: IMAGE(S) OBTAINED DURING PROCEDURE. Assessment & Plan - Diagnosis (1) Cholecystitis, acute with cholelithiasis Is this a current diagnosis for this admission?: Yes (2) Anxiety Is this a current diagnosis for this admission?: Yes (3) Depression Qualifiers: Depression Type: unspecified Qualified Code(s): F32.9 - Major depressive disorder, single episode, unspecified Is this a current diagnosis for this admission?: Yes (4) GERD (gastroesophageal reflux disease) Qualifiers: Esophagitis presence: without esophagitis Qualified Code(s): K21.9 - Gastro-esophageal reflux disease without esophagitis Is this a current diagnosis for this admission?: Yes (5) History of TIA (transient ischemic attack) Is this a current diagnosis for this admission?: Yes (6) Hyperlipidemia Qualifiers: Hyperlipidemia type: unspecified Qualified Code(s): E78.5 - Hyperlipidemia, unspecified Is this a current diagnosis for this admission?: Yes (7) Hypothyroidism Qualifiers: Hypothyroidism type: unspecified Qualified Code(s): E03.9 - Hypothyroidism, unspecified Is this a current diagnosis for this admission?: Yes (8) Obstructive sleep apnea Is this a current diagnosis for this admission?: Yes - Time Time Spent with patient: 15-24 minutes - Plan Summary Plan Summary: Patient doing well. Continue current medications. Recommendation on discharge is to resume all home medications and repeat liver function test in 4 weeks. Thank you so much for letting us participate in her care. We will sign off from the case. Please call us as needed.
[2016-12-09] MEDS: PANTOPRAZOLE SODIUM 40 MG VIAL IV SCH (10:47)
[2016-12-09] MEDS: DOCUSATE SODIUM 100 MG CAPSULE PO SCH ×2 (10:47→17:16)
[2016-12-09] MEDS: BUDESONIDE/FORMOTEROL 160-4.5 MCG 60 PUFF/6 GM MDI IH SCH ×2 (10:55→17:16)
[2016-12-09] MEDS: SERTRALINE HCL 50 MG TABLET PO SCH (17:16)
[2016-12-09] MEDS: OXYCODONE HCL IR 5 MG TABLET PO PRN ×2 (17:19→21:10)
[2016-12-10] MEDS: OXYCODONE HCL IR 5 MG TABLET PO PRN ×2 (02:57→06:42)
[2016-12-10 05:30] LABS: HEMATOCRIT 31.7 % (36.0-47.0); HEMOGLOBIN 10.4 g/dL (12.0-15.5); HGB HCT DIFFERENCE -0.5; MEAN CORPUSCULAR HGB CONC 32.8 g/dL (32.0-36.0); MEAN CORPUSCULAR VOLUME 107 fl (80-97); RED BLOOD COUNT 2.96 10^6/uL (3.72-5.28); RED CELL DISTRIBUTION WIDTH 17.2 % (11.5-14.0); WHITE BLOOD COUNT 11.8 10^3/uL (4.0-10.5)
[2016-12-10 05:43] LABS: ALANINE AMINOTRANSFERASE 73 U/L (9-52); ALBUMIN 2.7 g/dL (3.5-5.0); ALKALINE PHOSPHATASE 266 U/L (38-126); ANION GAP 9 (5-19); ASPARTATE AMINO TRANSFERASE 49 U/L (14-36); BILIRUBIN,TOTAL 0.6 mg/dL (0.2-1.3); BLOOD UREA NITROGEN 8 mg/dL (7-20); CALCIUM 8.7 mg/dL (8.4-10.2); CARBON DIOXIDE 28 mmol/L (22-30); CHLORIDE 104 mmol/L (98-107); CREATININE RESULT 0.61 mg/dL (0.52-1.25); GLUCOSE 96 mg/dL (75-110); POTASSIUM 3.9 mmol/L (3.6-5.0); SODIUM 141.1 mmol/L (137-145); TOTAL PROTEIN 5.8 g/dL (6.3-8.2)
[2016-12-10 05:50] LABS: BASOPHILS % (MANUAL) 0 % (0-2); EOSINOPHILS % (MANUAL) 0 % (0-6); LYMPHOCYTES % (MANUAL) 6 % (13-45); TOTAL CELLS COUNTED 100
[2016-12-10 05:54] LABS: POLYCHROMASIA SLIGHT; TOXIC GRANULATION SLIGHT
[2016-12-10 05:55] LABS: ANISOCYTOSIS 1+; TARGET CELLS SLIGHT
[2016-12-10] MEDS: BUPROPION HCL 100 MG TABLET PO SCH ×2 (06:42→15:29)
[2016-12-10] MEDS ORDERED: LEVOFLOXACIN 500 MG TABLET PO SCH (10:00)
[2016-12-10] MEDS: LEVOTHYROXINE SODIUM 0.088 MG TABLET PO SCH (10:04)
[2016-12-10] MEDS: DOCUSATE SODIUM 100 MG CAPSULE PO SCH (10:04)
[2016-12-10] MEDS: BUDESONIDE/FORMOTEROL 160-4.5 MCG 60 PUFF/6 GM MDI IH SCH (10:04)
[2016-12-10 14:52] VITALS: BP 122/74
--- NOTE | 2016-12-10 18:08 | DISCHARGE SUMMARY E ---
Discharge Summary NAME: DEVI RODRIGUEZ : 1955 AGE: 61Y ADMITTED: 12/07/2016 DISCHARGED: 12/10/2016 ADMITTING DIAGNOSIS: Acute cholecystectomy. DISCHARGE DIAGNOSIS: Acute cholecystitis with a necrotic gallbladder. PROCEDURE PERFORMED: Operative procedure done was an open cholecystectomy, and she had a drain in place. HOSPITAL COURSE: The patient was admitted postop because the patient had necrotic gallbladder. A subtotal cholecystectomy stump was left with an overrunning suture with a difficulty anatomy, KENNA drains were placed, and the patient is recovering very well, tolerating diet, had a bowel movement. Abdominal exam is soft, nontender, and on examination of the drain no bile leak at all. Normal white count, feeling well, so we will discharge her home. We will keep the KENNA drain in place just in case if she develops any bile leaks, the drains will take care of it *------* post ERCP, again with a stent placement. The patient is doing very well otherwise, will follow up with the [facility], Dr. Ledezma. DISCHARGE MEDICATIONS: Include [place]/hydrocodone for the pain. FOLLOWUP PLAN: In 1 or 2 weeks in the Surgery Clinic, and instructions were given. DICTATING PHYSICIAN: IGNACIA COTTON M.D. [id number] PHY#: [id number] ID: [id number] JOB#: [id number] ACCT: [id number] cc:Ronna AMOS PA >
== END 2016-12-10 15:36 | disposition home or self-care (01) | DRG 416 ==
LOC: ER 17:41 → EH 12-07 02:07 → UNDOADMIN 12-07 02:07 → EH 12-07 02:08 → 4N 12-07 05:14
PROVIDERS: ATTEND Surgery
PROC: 0F5 Hepatobiliary System and Pancreas, Destruction (ICD-10-PCS; 2016-12-07)
PROC: 0W9F00Z Drainage of Abdominal Wall with Drainage Device, Open Approach (ICD-10-PCS; 2016-12-07)
PROC: 0WQF4ZZ Repair Abdominal Wall, Percutaneous Endoscopic Approach (ICD-10-PCS; 2016-12-07)
PROC: 0FJ44ZZ Inspection of Gallbladder, Percutaneous Endoscopic Approach (ICD-10-PCS; 2016-12-07)
PROC: 0FC98ZZ Extirpation of Matter from Common Bile Duct, Via Natural or Artificial Opening Endoscopic (ICD-10-PCS; 2016-12-07)
PROC: 0FB40ZZ Excision of Gallbladder, Open Approach (ICD-10-PCS; principal; 2016-12-07 18:00)
DX: K80.00 Calculus of gallbladder with acute cholecystitis without obstruction (principal); K82.8 Other specified diseases of gallbladder; K42.9 Umbilical hernia without obstruction or gangrene; G47.33 Obstructive sleep apnea (adult) (pediatric); K21.9 Gastro-esophageal reflux disease without esophagitis; J43.9 Emphysema, unspecified; E78.5 Hyperlipidemia, unspecified; F41.1 Generalized anxiety disorder; E03.9 Hypothyroidism, unspecified; F32.9 Major depressive disorder, single episode, unspecified; Z90.49 Acquired absence of other specified parts of digestive tract; Z79.82 Long term (current) use of aspirin; Z82.61 Family history of arthritis; Z83.3 Family history of diabetes mellitus; Z82.49 Family history of ischemic heart disease and other diseases of the circulatory system; Z80.1 Family history of malignant neoplasm of trachea, bronchus and lung; Z80.3 Family history of malignant neoplasm of breast; Z82.5 Family history of asthma and other chronic lower respiratory diseases; Z87.891 Personal history of nicotine dependence; Z86.73 Personal history of transient ischemic attack (TIA), and cerebral infarction without residual deficits
CPT/HCPCS: 36415; 43262; 74328; 76705; 790; 80048; 80053; 80076; 81001; 83690; 84439; 84443; 85025; 85027; 88304; 93005; 93010; 93976; 94799; 96361; 96365; 96375; 99285; J0131; J0171; J0295; J0330; J1100; J1170; J1610; J1885; J2250; J2270; J2310; J2405; J2543; J2550; J2704; J2765; J3010; J3480; J3490; J7030; S0164

== ENCOUNTER → 2017-01-17 | Outpatient (CLI) | payer BC ==
[2017-01-17 10:48] LABS: ABSOLUTE EOSINOPHILS # (AUTO) 0.1 10^3/uL (0.0-0.6); ABSOLUTE LYMPHOCYTES (AUTO) 0.8 10^3/uL (0.5-4.7); ABSOLUTE MONOCYTES (AUTO) 0.6 10^3/uL (0.1-1.4); ABSOLUTE NEUT (AUTO) 2.6 10^3/uL (1.7-8.2); BASOPHILS % (AUTO) 0.7 % (0-2); EOSINOPHILS % (AUTO) 2.3 % (0-6); HEMATOCRIT 38.6 % (36.0-47.0); HGB HCT DIFFERENCE 0.4; LYMPHOCYTES % (AUTO) 20.6 % (13-45); MEAN CORPUSCULAR HEMOGLOBIN 35.1 pg (27.0-33.4); MEAN CORPUSCULAR HGB CONC 33.6 g/dL (32.0-36.0); MEAN CORPUSCULAR VOLUME 105 fl (80-97); MONOCYTES % (AUTO) 14.1 % (3-13); RED BLOOD COUNT 3.69 10^6/uL (3.72-5.28); RED CELL DISTRIBUTION WIDTH 17.6 % (11.5-14.0); SEGMENTED NEUTROPHILS % (AUTO) 62.3 % (42-78); WHITE BLOOD COUNT 4.1 10^3/uL (4.0-10.5)
[2017-01-17 11:28] LABS: ALANINE AMINOTRANSFERASE 63 U/L (9-52); ALBUMIN 3.7 g/dL (3.5-5.0); ALKALINE PHOSPHATASE 131 U/L (38-126); ANION GAP 11 (5-19); ASPARTATE AMINO TRANSFERASE 70 U/L (14-36); BILIRUBIN,DIRECT 0.3 mg/dL (0.0-0.4); BILIRUBIN,TOTAL 0.4 mg/dL (0.2-1.3); BLOOD UREA NITROGEN 8 mg/dL (7-20); CALCIUM 9.1 mg/dL (8.4-10.2); CARBON DIOXIDE 26 mmol/L (22-30); CHLORIDE 106 mmol/L (98-107); CREATININE RESULT 0.56 mg/dL (0.52-1.25); GLUCOSE 85 mg/dL (75-110); POTASSIUM 4.4 mmol/L (3.6-5.0); SODIUM 142.5 mmol/L (137-145); TOTAL PROTEIN 6.7 g/dL (6.3-8.2)
== END ==
LOC: OD 09:36
PROVIDERS: ATTEND Surgery
DX: R10.9 Unspecified abdominal pain (principal); Z90.49 Acquired absence of other specified parts of digestive tract
CPT/HCPCS: 36415; 80053; 85025

== ENCOUNTER → 2017-01-24 | Outpatient (CLI) | payer BC | LOC: RAD 12:36 | PROVIDERS: ATTEND Surgery | DX: Z90.49 Acquired absence of other specified parts of digestive tract (principal) | CPT/HCPCS: 78226; A9537; Q9969 ==

== ENCOUNTER → 2017-02-20 | Outpatient (CLI) | payer BC ==
[2017-02-20 16:30] LABS: ALANINE AMINOTRANSFERASE 73 U/L (9-52); ALBUMIN 4.4 g/dL (3.5-5.0); ALKALINE PHOSPHATASE 124 U/L (38-126); ANION GAP 13 (5-19); ASPARTATE AMINO TRANSFERASE 78 U/L (14-36); BILIRUBIN,DIRECT 0.2 mg/dL (0.0-0.4); BILIRUBIN,TOTAL 0.6 mg/dL (0.2-1.3); BLOOD UREA NITROGEN 8 mg/dL (7-20); CALCIUM 9.1 mg/dL (8.4-10.2); CARBON DIOXIDE 27 mmol/L (22-30); CHLORIDE 101 mmol/L (98-107); CREATININE RESULT 0.61 mg/dL (0.52-1.25); GLUCOSE 85 mg/dL (75-110); POTASSIUM 4.3 mmol/L (3.6-5.0); TOTAL PROTEIN 7.3 g/dL (6.3-8.2)
== END ==
LOC: OD 15:32
PROVIDERS: ATTEND Surgery
DX: R11.0 Nausea (principal)
CPT/HCPCS: 36415; 80053

== ENCOUNTER → 2017-02-23 | Outpatient (CLI) | payer BC | LOC: RAD 14:54 | PROVIDERS: ATTEND Surgery | DX: R11.0 Nausea (principal); R63.0 Anorexia | CPT/HCPCS: 74160 ==